=== PATIENT | female | born 1965 | race African-American/Black ===

== ENCOUNTER 2022-01-04 18:23 | Inpatient (IN) | payer OTHER, MEDICAID ==
[~2022-01-04] VITALS: Ht 162.6 cm; Wt 103.7 kg
[~2022-01-04 18:23] MED LIST: ALBU18
[2022-01-04] MEDS ORDERED: ONDANSETRON HCL 4 MG/2 ML VIAL IV ONE (19:30)
[2022-01-04] MEDS ORDERED: MORPHINE SULFATE INJ 2 MG/ml SYRG IV ONE (19:30)
[2022-01-04] MEDS ORDERED: IOHEXOL 350 MG/ML 100ML IJ ONE (20:01)
[2022-01-04 21:03] LABS: Basophils # (auto) 0.1 10 ^3/uL (0-0.2); Basophils % (auto) 1.3 % (0.0-2.0); Eosinophils # (auto) 0.4 10 ^3/uL (0-0.8); Eosinophils % (auto) 8.6 % (0.0-7.0); Hematocrit 33.4 % (36.0-46.0); Mean Corpuscular Hemoglobin 23.9 pg (28.0-32.0); Mean Corpuscular Volume 79.8 fL (80.0-100.0); Monocytes # (auto) 0.4 10 ^3/uL (0-1.3); Monocytes % (auto) 7.9 % (0.0-12.0); Neutrophils # (auto) 2.2 10 ^3/uL (1.6-8.6); Neutrophils % (auto) 43.2 % (37.0-80.0); Red Blood Cells 4.19 10^6/uL (4.0-5.20); Red Cell Distribution Width 17.1 % (11.8-14.3)
[2022-01-04 21:06] LABS: Albumin 3.6 g/dL (3.4-5.0); Calcium 8.7 mg/dL (8.5-10.1); Potassium 4.2 mmol/L (3.5-5.1)
[2022-01-04 21:10] LABS: BUN/Creatinine Ratio 27.2; Bilirubin, Total 0.3 mg/dL (0.2-1.0); Total Protein 7.3 g/dL (6.4-8.2)
[2022-01-04] MEDS ORDERED: SODIUM CHLORIDE 0.9% 1,000 ML IV ONE (22:45)
[2022-01-05] MEDS ORDERED: HYDROcodone-ACET 5/325MG TAB PO PRN (08:45)
[2022-01-05] MEDS ORDERED: DOCUSATE SOD 100 MG CAP PO PRN (08:45)
[2022-01-05] MEDS: ONDANSETRON HCL 4 MG/2 ML VIAL IV PRN ×2 (09:23→13:59)
[2022-01-05] MEDS: SODIUM CHLORIDE 0.9% 1,000 ML IV SCH (09:25)
[2022-01-05] MEDS: MORPHINE SULFATE INJ 2 MG/ml SYRG IV PRN ×4 (09:25→23:22)
[2022-01-05 09:33] LABS: Urine Bacteria NONE SEEN /hpf (None Seen); Urine Blood Negative /uL (Negative); Urine Specific Gravity 1.032 (1.001-1.035); Urine WBC <1 /hpf (0 - 5)
[2022-01-05 09:42] LABS: INR 0.96 (0.9-1.15); Partial Thromboplastin Time 23.6 sec (24.6-33.4)
[2022-01-05] MEDS: PIPERACILLIN-TAZOB 3.375GM 100 ML IV SCH ×2 (13:59→20:15)
[2022-01-05] MEDS ORDERED: NALO1TAB4 PO (16:50)
[2022-01-05] MEDS ORDERED: MORP1TAB12 PO (16:50)
[2022-01-05] MEDS ORDERED: NORT25CA PO (16:50)
[2022-01-05] MEDS ORDERED: TRAZ50TA2 PO (16:50)
[2022-01-05] MEDS ORDERED: CARV3.1240 PO (16:50)
[2022-01-05] MEDS ORDERED: GABA400C11 PO (16:50)
[2022-01-05] MEDS ORDERED: BACL10TA PO (16:50)
[2022-01-05 17:00] VITALS: BP 156/83
[2022-01-05 22:00] VITALS: BP 113/80
[2022-01-06] MEDS: SODIUM CHLORIDE 0.9% 1,000 ML IV SCH (01:25)
[2022-01-06] MEDS: PIPERACILLIN-TAZOB 3.375GM 100 ML IV SCH ×2 (02:11→08:15)
[2022-01-06 05:30] VITALS: BP 158/94
[2022-01-06] MEDS: MORPHINE SULFATE INJ 2 MG/ml SYRG IV PRN (05:59)
[2022-01-06 08:00] VITALS: BP 162/90
[2022-01-06 09:00] VITALS: BP 162/90
[2022-01-06] MEDS ORDERED: MIDAZOLAM HCL 2MG/2ML 2ml VIAL (1mg/ml) ONE (09:30)
[2022-01-06] MEDS ORDERED: fentaNYL CITRATE 100 MCG/2 ML VL ONE ×2 (09:30→11:45)
[2022-01-06] MEDS ORDERED: ceFAZolin 1GM/50ML 100 ML IV ONE (09:31)
[2022-01-06] MEDS ORDERED: SUCCINYLCHOLINE CHLORIDE 20 MG/ML 10ML VIAL IV ONE (09:37)
[2022-01-06] MEDS ORDERED: PROPOFOL 10 MG/ML 20 ML IV ONE (09:38)
[2022-01-06] MEDS ORDERED: BUPIVACAINE HCL 0.25% P/F 10 ML VIAL ONE (09:39)
[2022-01-06] MEDS ORDERED: EPINEPHrine HCL 1 MG/1 ML AMP ONE (09:39)
[2022-01-06] MEDS ORDERED: ROCURONIUM 10MG/ML 10ML VIAL IV ONE (09:41)
[2022-01-06] MEDS ORDERED: LABETALOL HCL 5 MG/ML ML 20ML VIAL IV ONE (11:28)
[2022-01-06] MEDS ORDERED: ONDANSETRON HCL 4 MG/2 ML VIAL ONE (11:48)
[2022-01-06] MEDS ORDERED: NEOSTIGMINE 1 MG/ML INJ (10mg/10ML VIAL) ONE (11:53)
[2022-01-06] MEDS ORDERED: GLYCOPYRROLATE 0.2 MG/ML 1ML VIAL ONE (11:53)
[2022-01-06] MEDS ORDERED: LABETALOL HCL 5 MG/ML 4ML SYRINGE IV PRN (12:15)
[2022-01-06] MEDS ORDERED: HYDROmorphone HCL 2 MG/ML VL/or syr IV PRN (12:15)
[2022-01-06] MEDS ORDERED: METOCLOPRAMIDE HCL 5MG/ml INJ 2ml VIAL IV PRN (12:15)
[2022-01-06] MEDS: HYDROmorphone HCL 2 MG/ML VL/or syr IV PRN ×7 (12:23→22:39)
[2022-01-06] MEDS: D5W/SOD CHL 0.45%/KCL 20MEQ 1,000 ML IV SCH ×2 (13:45→20:20)
[2022-01-06] MEDS: ceFAZolin 1GM/50ML 50 ML IV SCH ×2 (13:47→18:30)
[2022-01-06 14:12] LABS: Basophils # (auto) 0.1 10 ^3/uL (0-0.2); Eosinophils # (auto) 0.1 10 ^3/uL (0-0.8); Hemoglobin 10.4 g/dL (12.2-16.2); Mean Corpuscular Hemoglobin 23.9 pg (28.0-32.0); Mean Corpuscular Hgb Conc. 30.5 g/dL (32.0-36.0); Monocytes # (auto) 0.4 10 ^3/uL (0-1.3); Neutrophils # (auto) 3.6 10 ^3/uL (1.6-8.6)
[2022-01-06 14:15] LABS: Basophils % (auto) 1.2 % (0.0-2.0); Eosinophils % (auto) 2.7 % (0.0-7.0); Hematocrit 33.9 % (36.0-46.0); Lymphocytes % (auto) 19.2 % (10.0-50.0); Mean Corpuscular Volume 78.4 fL (80.0-100.0); Monocytes % (auto) 8.2 % (0.0-12.0); Neutrophils % (auto) 68.7 % (37.0-80.0); Red Blood Cells 4.33 10^6/uL (4.0-5.20); Red Cell Distribution Width 16.9 % (11.8-14.3); White Blood Cell 5.2 10^3/uL (4.4-10.8)
[2022-01-06 16:07] LABS: Potassium 4.1 mmol/L (3.5-5.1)
[2022-01-06 17:26] VITALS: BP 161/90
[2022-01-06] MEDS: hydrALAZINE HCL 20 MG/ML VL IV PRN (18:34)
[2022-01-06 20:00] VITALS: BP 162/90
[2022-01-06 22:56] VITALS: BP 136/73
[2022-01-07] VITALS (7 sets, daily range): BP systolic 145–185; BP diastolic 81–105
[2022-01-07] MEDS: ceFAZolin 1GM/50ML 50 ML IV SCH ×4 (00:52→18:00)
[2022-01-07] MEDS: HYDROmorphone HCL 2 MG/ML VL/or syr IV PRN ×6 (02:46→21:24)
[2022-01-07] MEDS: D5W/SOD CHL 0.45%/KCL 20MEQ 1,000 ML IV SCH ×3 (04:40→21:20)
[2022-01-07] MEDS: MORPHINE SULFATE INJ 2 MG/ml SYRG IV PRN (09:31)
[2022-01-07] MEDS: hydrALAZINE HCL 20 MG/ML VL IV PRN ×2 (12:29→21:58)
[2022-01-07] MEDS ORDERED: ACETAMINOPHEN 325 MG TAB PO PRN (14:15)
[2022-01-07] MEDS: LORazepam 0.5 MG TAB PO PRN (23:36)
[2022-01-08] MEDS: HYDROmorphone HCL 2 MG/ML VL/or syr IV PRN ×6 (01:08→20:58)
[2022-01-08] MEDS: ceFAZolin 1GM/50ML 50 ML IV SCH ×4 (01:09→18:17)
[2022-01-08] MEDS ORDERED: dilTIAZem HCL 180MG ER CAP PO ONE (01:45)
[2022-01-08] MEDS ORDERED: dilTIAZem 120MG ER CAP PO ONE (01:45)
[2022-01-08] MEDS: CARVEDILOL 3.125 MG TAB PO SCH ×3 (01:51→22:01)
[2022-01-08 06:08] VITALS: BP 137/90
[2022-01-08] MEDS: D5W/SOD CHL 0.45%/KCL 20MEQ 1,000 ML IV SCH ×3 (06:35→23:45)
[2022-01-08 09:00] VITALS: BP 142/86
[2022-01-08 13:00] VITALS: BP 144/82
[2022-01-08 17:00] VITALS: BP 130/76
[2022-01-08 22:00] VITALS: BP 135/90
[2022-01-08] MEDS: LORazepam 0.5 MG TAB PO PRN (23:09)
[2022-01-09] MEDS: ceFAZolin 1GM/50ML 50 ML IV SCH ×4 (01:17→17:32)
[2022-01-09] MEDS: HYDROmorphone HCL 2 MG/ML VL/or syr IV PRN ×4 (03:51→16:35)
[2022-01-09 05:00] VITALS: BP 137/77
[2022-01-09 06:27] LABS: Eosinophils # (auto) 0.3 10 ^3/uL (0-0.8); Eosinophils % (auto) 4.8 % (0.0-7.0)
[2022-01-09 06:30] LABS: Basophils # (auto) 0.1 10 ^3/uL (0-0.2); Basophils % (auto) 0.9 % (0.0-2.0); Hematocrit 30.9 % (36.0-46.0); Hemoglobin 9.8 g/dL (12.2-16.2); Lymphocytes # (auto) 1.6 10 ^3/uL (0.4-5.4); Lymphocytes % (auto) 23.4 % (10.0-50.0); Mean Corpuscular Hemoglobin 24.7 pg (28.0-32.0); Mean Corpuscular Hgb Conc. 31.8 g/dL (32.0-36.0); Mean Corpuscular Volume 77.7 fL (80.0-100.0); Monocytes # (auto) 0.8 10 ^3/uL (0-1.3); Monocytes % (auto) 12.3 % (0.0-12.0); Neutrophils # (auto) 3.9 10 ^3/uL (1.6-8.6); Neutrophils % (auto) 58.6 % (37.0-80.0); Red Blood Cells 3.97 10^6/uL (4.0-5.20); Red Cell Distribution Width 16.6 % (11.8-14.3); White Blood Cell 6.7 10^3/uL (4.4-10.8)
[2022-01-09 06:35] LABS: BUN/Creatinine Ratio 18.4; Calcium 8.7 mg/dL (8.5-10.1); Magnesium 1.9 mg/dL (1.6-2.6); Potassium 3.5 mmol/L (3.5-5.1)
[2022-01-09] MEDS: D5W/SOD CHL 0.45%/KCL 20MEQ 1,000 ML IV SCH ×2 (06:36→15:00)
[2022-01-09 09:00] VITALS: BP 138/74
[2022-01-09] MEDS: CARVEDILOL 3.125 MG TAB PO SCH (09:34)
[2022-01-09] MEDS ORDERED: dilTIAZem 120MG ER CAP PO SCH (10:00)
[2022-01-09] MEDS ORDERED: dilTIAZem HCL 180MG ER CAP PO SCH (10:00)
[2022-01-09 13:00] VITALS: BP 126/76
[2022-01-09 17:00] VITALS: BP 145/89
[2022-01-09 17:45] VITALS: BP 140/82
== END 2022-01-09 19:40 | disposition home or self-care (01) | DRG 352 ==
LOC: EDBD 18:23 → ER 18:29 → TELE 01-05 08:43 → TELE-CENTR 01-05 16:53
PROVIDERS: ADMIT Internal Medicine; ATTEND Internal Medicine
PROC: 0YQ50ZZ Repair Right Inguinal Region, Open Approach (ICD-10-PCS; principal; 2022-01-06 10:45)
DX: K40.90 Unilateral inguinal hernia, without obstruction or gangrene, not specified as recurrent (principal); E66.01 Morbid (severe) obesity due to excess calories; I10 Essential (primary) hypertension; J45.909 Unspecified asthma, uncomplicated; Z20.822 Contact with and (suspected) exposure to COVID-19; Z68.39 Body mass index [BMI] 39.0-39.9, adult
CPT/HCPCS: 36415; 71045; 74177; 80048; 80053; 81001; 81025; 83605; 83735; 85025; 85610; 85730; 86850; 86900; 86901; 93005; 93306; 93970; 96361; 96374; 96375; 97116; 97163; 97530; G0378; J0171; J0330; J0690; J2250; J2405; J2543; J2704; J3490